=== PATIENT | female | born 1990 | race Caucasian/White ===

== ENCOUNTER 2016-10-02 18:06 | Emergency (ER) | payer MEDICAID ==
[~2016-10-02] VITALS: Ht 172.7 cm; Wt 130.0 kg
[~2016-10-02 18:06] MED LIST: IBUP800T23 PO; ROBA500T PO
[2016-10-02 18:09] VITALS: BP 154/85; TEMP 98.3; O2SAT 99
--- NOTE | 2016-10-02 18:29 | PD ---
HPI . possible bronchitis Chief Complaint: Cold / Flu Symptoms Time Seen by Provider: 18:23 Travel History International Travel<30 days: No Contact w/Intl Traveler<30days: No Traveled to known affect area: No History of Present Illness HPI 26-year-old female here with complaints of recurrent bronchitis. Patient says about this time of year she gets bouts of bronchitis and increased coughing, where it makes it difficult for her to do anything. She admits to coughing to the point where she is about to vomit. Today she is complaining of increased cough with some mild white phlegm production. She denies any fever or chills. She has no cold symptoms. She denies any nausea, vomiting, chest pain, shortness of breath or abdominal pain. PFSH Past Medical History Immunizations Current: Yes ?: Not LMP: 09/17/16 : 2 Para: 1 Past Surgical History Other Surgery: Yes (VOCAL CORD POLYPS) Social History Alcohol Use: No Tobacco Use: No Substance Use: No Allergies-Medications (Allergen,Severity, Reaction): Coded Allergies: No Known Allergies (Verified , 10/02/16) Reported Meds & Prescriptions Reported Meds & Active Scripts Active Proair Hfa 8.5 GM Inh (Albuterol Sulfate) 90 Mcg/Act Aer 2 Puff INH Q6H PRN 108 mcg/actuation Tessalon Perles (Benzonatate) 100 Mg Cap 100 Mg PO TID PRN Prednisone 50 Mg Tab 50 Mg PO DAILY Robaxin (Methocarbamol) 500 Mg Tab 500 Mg PO QID PRN Ibuprofen 800 Mg Tab 800 Mg PO Q6HR PRN Review of Systems General / Constitutional: No: Fever Eyes: No: Visual changes HENT: No: Headaches Cardiovascular: No: Chest Pain or Discomfort Respiratory: Positive: Cough, No: Shortness of Breath Gastrointestinal: Positive: Vomiting (when coughing too much), No: Abdominal Pain Genitourinary: No: Dysuria Musculoskeletal: No: Pain Skin: No Rash Neurologic: No: Weakness Psychiatric: No: Depression Endocrine: No: Polydipsia Hematologic/Lymphatic: No: Easy Bruising Physical Exam Narrative GENERAL: AAO x 3, no acute distress, Well-nourished, well-developed patient. SKIN: Warm and dry. No visible rashes or bruising. HEAD: Normocephalic and atraumatic. EYES: No scleral icterus. No injection or drainage. Mild posterior pharynx erythema, no exudates or tonsillar edema. ENT: No nasal drainage noted. Mucous membranes pink. Airway patent. NECK: Supple, trachea midline. No JVD. No lymphadenopathy. CARDIOVASCULAR: Regular rate and rhythm without murmurs, gallops, or rubs. RESPIRATORY: Breath sounds equal bilaterally, but slightly diminished. No accessory muscle use. No rhonchi or rales. Dry cough prominent during examination. GASTROINTESTINAL: Abdomen soft, non-tender, nondistended. EXTREMITIES: No cyanosis or edema. BACK: Nontender without obvious deformity. No CVA tenderness. PSYCH: AAO x 3, normal affect. Data Data Last Documented VS Vital Signs Date Time Temp Pulse Resp B/P Pulse Ox O2 Delivery O2 Flow Rate FiO2 10/02/16 18:09 98.3 90 24 154/85 99 Room Air [facility] Medical Decision Making Medical Screen Exam Complete: Yes Emergency Medical Condition: Yes Differential Diagnosis Bronchitis, sinusitis, less likely pneumonia Narrative Course 26-year-old female here with complaints of recurrent bronchitis. Patient says about this time of year she gets bouts of bronchitis and increased coughing, where it makes it difficult for her to do anything. She admits to coughing to the point where she is about to vomit. Today she is complaining of increased cough with some mild white phlegm production. She denies any fever or chills. She has no cold symptoms. She denies any nausea, vomiting, chest pain, shortness of breath or abdominal pain. Patient seen and examined. Her examination is unremarkable except for a dry cough. She has slightly diminished breath sounds, but no Rales, rhonchi or wheezing. Recommend steroid burst, Tessalon Perles and pro-air inhaler. She's been advised to follow-up with primary care provider Patient verbalized understanding of instructions, questions were answered, and thanked me for their care. I advised them if their condition worsens, please return to the nearest emergency room for further care. Diagnosis Primary Impression: Acute bronchitis Qualified Code: J20.9 - Acute bronchitis, unspecified organism Patient Instructions: Acute Bronchitis (ED), General Instructions Departure Forms: Tests/Procedures, Work Release Enter return to work date: Oct 03, 2016 Additional Instructions: As we discussed the cough can last 6-8 weeks. Take medications as prescribed. If you are a smoker, try to quit. Follow up with your primary care provider. If you develop sudden onset or worsening of shortness or breath, please go to the nearest emergency room. Med/Other Pt SpecificInfo: Prescription(s) given Scripts Albuterol 8.5 GM Inh (Proair Hfa 8.5 GM Inh)90 Mcg/Act Aer2 Puff INH Q6H PRN ( SHORTNESS OF BREATH) #1 INHALER Ref 0 108 mcg/actuation Prov:Lizz López MD 10/02/16 Benzonatate (Tessalon Perles)100 Mg [id number] Mg PO TID PRN (COUGH) #30 CAP Ref 0 Prov:Lizz López MD 10/02/16 Prednisone 50 Mg Tab50 Mg PO DAILY #5 TAB Prov:Lizz López MD 10/02/16 Disposition: 01 DISCHARGE HOME Condition: Stable Bethany Lopez Oct 02, 2016 18:29
[2016-10-02] MEDS ORDERED: BENZ100 PO (18:30)
[2016-10-02] MEDS ORDERED: ALBUAER3 INH (18:30)
[2016-10-02] MEDS ORDERED: PRED50 PO (18:30)
== END 2016-10-02 19:01 | disposition home or self-care (01) ==
LOC: NEPB 18:06
DX: J20.9 Acute bronchitis, unspecified (principal)
CPT/HCPCS: 99283

== ENCOUNTER 2017-03-12 14:42 | Emergency (ER) | payer MEDICAID ==
[~2017-03-12] VITALS: Ht 154.9 cm; Wt 127.0 kg
[~2017-03-12 14:42] MED LIST changes: +ALBUAER3 INH; +BENZ100 PO; +PRED50 PO
[2017-03-12 14:44] VITALS: BP 176/83; PULSE 84; RESP 15; TEMP 98.2; O2SAT 99
--- NOTE | 2017-03-12 16:03 | PD ---
HPI . dental pain Chief Complaint: Oral / Dental Pain or Problem Time Seen by Provider: 15:55 Travel History International Travel<30 days: No Contact w/Intl Traveler<30days: No Traveled to known affect area: No History of Present Illness HPI 27 yr old female here with c/o dental pain for quite some time. She tells me she has an appointment with the oral surgeon but it isn't until [address] She is here requesting pain meds. She denies any fever or chills. No facial swelling. History Social History Alcohol Use: No Tobacco Use: No Allergies-Medications (Allergen,Severity, Reaction): Coded Allergies: No Known Allergies (Verified , 10/02/16) Reported Meds & Prescriptions Reported Meds & Active Scripts Active Proair Hfa 8.5 GM Inh (Albuterol Sulfate) 90 Mcg/Act Aer 2 Puff INH Q6H PRN 108 mcg/actuation Tessalon Perles (Benzonatate) 100 Mg Cap 100 Mg PO TID PRN Prednisone 50 Mg Tab 50 Mg PO DAILY Robaxin (Methocarbamol) 500 Mg Tab 500 Mg PO QID PRN Ibuprofen 800 Mg Tab 800 Mg PO Q6HR PRN Review of Systems General / Constitutional: No: Fever Eyes: No: Visual changes HENT: Positive: Dental Difficulties, No: Headaches Cardiovascular: No: Chest Pain or Discomfort Respiratory: No: Shortness of Breath Gastrointestinal: No: Abdominal Pain Genitourinary: No: Dysuria Musculoskeletal: No: Pain Skin: No Rash Neurologic: No: Weakness Psychiatric: No: Depression Endocrine: No: Polydipsia Hematologic/Lymphatic: No: Easy Bruising Physical Exam Narrative GENERAL: AAO x 3, no acute distress, Well-nourished, well-developed patient. SKIN: Warm and dry. No visible rashes or bruising. HEAD: Normocephalic and atraumatic. EYES: No scleral icterus. No injection or drainage. EOM intact, PERRLA ENT: No nasal drainage noted. Mucous membranes pink. Airway patent. #32 slightly cracked, no fluid collection or drainage, no inflammation, no facial edema, NECK: Supple, trachea midline. No JVD. No lymphadenopathy CARDIOVASCULAR: Regular rate and rhythm without murmurs, gallops, or rubs. RESPIRATORY: Breath sounds equal bilaterally. No accessory muscle use. No rhonchi or rales. GASTROINTESTINAL: Visual inspection normal EXTREMITIES: No cyanosis or edema. BACK: No obvious deformity. NEURO: CN II-12 intact, PSYCH: AAO x 3, normal affect. Data Data Last Documented VS Vital Signs Date Time Temp Pulse Resp B/P (MAP) Pulse Ox O2 Delivery O2 Flow Rate FiO2 03/12/17 14:44 98.2 84 15 176/83 (114) 99 MDM Medical Screen Exam Complete: Yes Emergency Medical Condition: No Differential Diagnosis Dentalgia, cracked tooth, less likely oral abscess Narrative Course A medical screening exam was performed: At the time of evaluation the presenting medical condition was determined not to be of an emergent nature. The patient was given the option of receiving additional care, but declined. Patient was given options for additional community resources from which to obtain care. The Patient Has Been advised to seek medical attention for their presenting complaint. The patient has been advised to return to the ER at any time if an emergent condition develops. Advised patient to try [id number] Tylenol or Ibuprofen. Recommend trying to find another oral surgeon who can see her earlier. Primary Impression: Encounter for medical screening examination Condition: Stable Bethany Lopez Mar 12, 2017 16:03
== END 2017-03-12 16:09 | disposition left against medical advice (07) ==
LOC: NEPD 14:42
DX: K08.89 Other specified disorders of teeth and supporting structures (principal)
CPT/HCPCS: 99281

== ENCOUNTER 2017-07-07 12:04 | Emergency (ER) | payer MEDICAID ==
[~2017-07-07] VITALS: Ht 157.5 cm; Wt 125.0 kg
[~2017-07-07 12:04] MED LIST changes: +IBUP1TAB7 PO; -IBUP800T23 PO
[2017-07-07 12:06] VITALS: BP 143/87; PULSE 90; RESP 14; TEMP 97.5; O2SAT 97
[2017-07-07] MEDS ORDERED: PRED-503 PO (13:59)
--- NOTE | 2017-07-07 13:59 | PD ---
HPI Chief Complaint: ENT Complaint Time Seen by Provider: 13:30 Travel History International Travel<30 days: No Contact w/Intl Traveler<30days: No Traveled to known affect area: No History of Present Illness HPI The patient is a 27-year-old female who presents to the emergency department for 2 days of sore throat, congestion, frontal headache, dry nonproductive cough, loss of voice. The patient states she has sick family members at home with strep pharyngitis and was concerned that she may have strep throat. The patient denies any fever, chills, or sweats. She does note a dry nonproductive cough without any shortness of breath or chest pain. She denies any associated nausea, vomiting, diarrhea, abdominal pain, myalgias, or arthralgias. She does complain of a frontal facial headache over the frontal sinuses and mild nasal congestion. She also complains of postnasal drip. PFSH Past Medical History Medical History: Denies Significant Hx Immunizations Current: Yes ?: Not : 2 Para: 1 Past Surgical History Other Surgery: Yes (VOCAL CORD POLYPS) Social History Alcohol Use: No Tobacco Use: No Substance Use: No Allergies-Medications (Allergen,Severity, Reaction): Coded Allergies: No Known Allergies (Verified Adverse Reaction, Unknown, 07/07/17) Reported Meds & Prescriptions Reported Meds & Active Scripts Active Proair Hfa 8.5 GM Inh (Albuterol Sulfate) 90 Mcg/Act Aer 2 Puff INH Q6H PRN 108 mcg/actuation Tessalon Perles (Benzonatate) 100 Mg Cap 100 Mg PO TID PRN Prednisone 50 Mg Tab 50 Mg PO DAILY Robaxin (Methocarbamol) 500 Mg Tab 500 Mg PO QID PRN Ibuprofen 800 Mg Tab 800 Mg PO Q6HR PRN Review of Systems Except as stated in HPI: all other systems reviewed are Neg General / Constitutional: No: Fever, Chills HENT: Positive: Headaches, Sore Throat, Congestion Respiratory: Positive: Cough, No: Shortness of Breath Gastrointestinal: No: Nausea, Vomiting, Diarrhea, Abdominal Pain Musculoskeletal: No: Myalgias, Arthralgias Physical Exam Narrative GENERAL: Awake, alert, pleasant 27-year-old female who appears her stated age and is in no acute respiratory distress. SKIN: Focused skin assessment warm/dry. HEAD: Atraumatic. Normocephalic. EYES: Pupils equal and round. No scleral icterus. No injection or drainage. ENT: No nasal bleeding or discharge. TMs are translucent and EACs are clear. Oropharynx reveals cobblestoning but no erythema or exudate. Patient has mild loss of voice. NECK: Trachea midline. No JVD. CARDIOVASCULAR: Regular rate and rhythm. No murmur appreciated. RESPIRATORY: No accessory muscle use. Clear to auscultation. Breath sounds equal bilaterally. MUSCULOSKELETAL: No obvious deformities. No clubbing. No cyanosis. No edema. NEUROLOGICAL: Awake and alert. No obvious cranial nerve deficits. Motor grossly within normal limits. PSYCHIATRIC: Appropriate mood and affect; insight and judgment normal. Data Data Last Documented VS Vital Signs Date Time Temp Pulse Resp B/P (MAP) Pulse Ox O2 Delivery O2 Flow Rate FiO2 07/07/17 12:06 97.5 90 14 143/87 (105) 97 Orders Orders Group A Rapid Strep Screen (07/07/17 12:09) Strep Culture (Group A) (07/07/17 12:14) Prednisone (Deltasone) (07/07/17 14:00) MDM Medical Decision Making Medical Screen Exam Complete: Yes Emergency Medical Condition: Yes Medical Record Reviewed: Yes Differential Diagnosis Differential diagnosis includes laryngitis, pharyngitis, strep pharyngitis, viral pharyngitis, influenza, URI, sinusitis. Narrative Course The patient's symptoms are consistent with viral URI with secondary laryngitis. Therefore, the patient we placed on prednisone, administer the first dose in the emergency department and will be discharged home with prednisone once a day for the next 4 days. She will also be provided a work excuse for 2 days. She is advised to alternate Tylenol and Motrin as needed for pain and fever and a follow-up with her primary physician. Return if symptoms worsen or progress. Diagnosis Primary Impression: Viral syndrome Additional Impression: Laryngitis Patient Instructions: General Instructions Additional Instructions: Medications as directed. Alternate Tylenol and Motrin for pain and fever. Work excuse for 2 days. Follow-up with a primary physician. Med/Other Pt SpecificInfo: Prescription(s) given Scripts Prednisone (Deltasone) 20 Mg Tab 40 MG PO DAILY for 4 Days, #8 TAB 0 Refills Prov: Vu Hernandez MD 07/07/17 Disposition: 01 DISCHARGE HOME Condition: Stable Vu Hernandez MD Jul 07, 2017 13:59
[2017-07-07] MEDS ORDERED: predniSONE 20 MG TAB PO ONE (14:00)
== END 2017-07-07 14:30 | disposition home or self-care (01) ==
LOC: NEPD 12:04
DX: B34.9 Viral infection, unspecified (principal); Z79.899 Other long term (current) drug therapy
CPT/HCPCS: 87081; 87880; 99283; J7512

== ENCOUNTER 2017-10-13 15:55 | Observation (INO) | payer MEDICAID ==
[~2017-10-13] VITALS: Ht 154.9 cm; Wt 122.5 kg
[~2017-10-13 15:55] MED LIST changes: +PRED-503 PO
[2017-10-13 16:05] VITALS: BP 157/81; PULSE 87; RESP 19; TEMP 99.5; O2SAT 100
--- NOTE | 2017-10-13 20:44 | PD ---
HPI Chief Complaint: Respiratory Distress Time Seen by Provider: 20:33 Travel History International Travel<30 days: No Contact w/Intl Traveler<30days: No Traveled to known affect area: No History of Present Illness HPI 27-year-old female presents to the emergency department for evaluation of difficulty swallowing, hoarseness, shortness of breath especially with lying down that worsened this morning. 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 She had surgeries as a child, has not had any surgery since. She has not been following up with ENT. She saw her primary care physician today who referred her to the emergency department. Patient states that she has been having worsening symptoms for a month, but the symptoms worsened today. She denies any pain. Patient denies any chance of . She denies any chest pain. No abdominal pain. No nausea, vomiting , diarrhea. No exacerbating or alleviating factors. Moderate severity. PFSH Past Medical History Immunizations Current: Yes ?: Not : 2 Para: 1 Past Surgical History Other Surgery: Yes (VOCAL CORD POLYPS) Social History Alcohol Use: No Tobacco Use: No Substance Use: No Allergies-Medications (Allergen,Severity, Reaction): Coded Allergies: No Known Allergies (Verified Adverse Reaction, Unknown, 10/13/17) Reported Meds & Prescriptions Reported Meds & Active Scripts Active Deltasone (Prednisone) 20 Mg Tab 40 Mg PO DAILY 4 Days Proair Hfa 8.5 GM Inh (Albuterol Sulfate) 90 Mcg/Act Aer 2 Puff INH Q6H PRN 108 mcg/actuation Tessalon Perles (Benzonatate) 100 Mg Cap 100 Mg PO TID PRN Prednisone 50 Mg Tab 50 Mg PO DAILY Robaxin (Methocarbamol) 500 Mg Tab 500 Mg PO QID PRN Ibuprofen 800 Mg Tab 800 Mg PO Q6HR PRN Review of Systems Except as stated in HPI: all other systems reviewed are Neg Physical Exam Narrative GENERAL: Well-nourished, well-developed female patient, afebrile. Patient's voice is hoarse. SKIN: Focused skin assessment warm/dry. HEAD: Normocephalic. Atraumatic. ENT: Mucosa pink and moist. No erythema or exudates. No uvular edema. No uvular , palatal, or tonsillar deviation. Airway patent. Nasal turbinates appear normal without nasal blood, purulent drainage or septal hematoma. Bilateral tympanic membranes are clear without erythema or perforation. EYES: No scleral icterus. No injection or drainage. NECK: Supple, trachea midline. No JVD or lymphadenopathy. CARDIOVASCULAR: Regular rate and rhythm without murmurs, gallops, or rubs. RESPIRATORY: Breath sounds equal bilaterally. No accessory muscle use. Lungs sounds are clear to auscultation. GASTROINTESTINAL: Abdomen soft, non-tender, nondistended. MUSCULOSKELETAL: No cyanosis, or edema. BACK: Nontender without obvious deformity. No CVA tenderness. Data Data Last Documented VS Vital Signs Date Time Temp Pulse Resp B/P (MAP) Pulse Ox O2 Delivery O2 Flow Rate FiO2 10/13/17 20:45 98 Room Air 10/13/17 16:05 99.5 87 19 157/81 (106) Orders Orders Complete Blood Count With Diff (10/13/17 20:37) Basic Metabolic Panel (Bmp) (10/13/17 20:37) Prothrombin Time / Inr (Pt) (10/13/17 20:37) Act Partial Throm Time (Ptt) (10/13/17 20:37) Iv Access Insert/Monitor (10/13/17 20:37) Ed Urine Pregnancytest Poc (10/13/17 20:37) Ct Soft Tiss Neck W Iv Cont (10/13/17 ) Ecg Monitoring (10/13/17 20:37) Oximetry (10/13/17 20:37) Oxygen Administration (10/13/17 20:37) Dexamethasone Inj (Decadron Inj) (10/13/17 20:45) Labs Laboratory Tests Test 10/13/17 21:05 White Blood Count 8.5 TH/MM3 Red Blood Count 4.50 MIL/MM3 Hemoglobin 14.1 GM/DL Hematocrit 38.8 % Mean Corpuscular Volume 86.3 FL Mean Corpuscular Hemoglobin 31.4 PG Mean Corpuscular Hemoglobin Concent 36.4 % Red Cell Distribution Width 13.0 % Platelet Count 285 TH/MM3 Mean Platelet Volume 8.6 FL Neutrophils (%) (Auto) 61.6 % Lymphocytes (%) (Auto) 27.5 % Monocytes (%) (Auto) 7.8 % Eosinophils (%) (Auto) 2.7 % Basophils (%) (Auto) 0.4 % Neutrophils # (Auto) 5.2 TH/MM3 Lymphocytes # (Auto) 2.3 TH/MM3 Monocytes # (Auto) 0.7 TH/MM3 Eosinophils # (Auto) 0.2 TH/MM3 Basophils # (Auto) 0.0 TH/MM3 CBC Comment AUTO DIFF Differential Comment AUTO DIFF CONFIRMED Platelet Estimate NORMAL Platelet Morphology Comment NORMAL Prothrombin Time 10.1 SEC Prothromb Time International Ratio 1.0 RATIO Activated Partial Thromboplast Time 26.1 SEC Blood Urea Nitrogen 8 MG/DL Creatinine 0.58 MG/DL Random Glucose 87 MG/DL Calcium Level 9.2 MG/DL Sodium Level 139 MEQ/L Potassium Level 4.1 MEQ/L Chloride Level 102 MEQ/L Carbon Dioxide Level 30.8 MEQ/L Anion Gap 6 MEQ/L Estimat Glomerular Filtration Rate 124 ML/MIN [facility] Medical Decision Making Medical Screen Exam Complete: Yes Emergency Medical Condition: Yes Medical Record Reviewed: Yes Differential Diagnosis Worsening vocal cord polyps versus retropharyngeal abscess versus epiglottitis Narrative Course 27-year-old female presents to the emergency department for evaluation of difficulty swallowing, hoarse voice, shortness of breath, worsened today. She' s history of vocal cord polyps and believes they are worsening. I discussed this established. CBC, BMP, PTT, PT/INR, UPT are ordered and pending. Chest x- ray and CT soft tissue neck with IV contrast is ordered and pending. Patient is given dexamethasone 8 mg IV. Patient declined chest x-ray. She also declined dexamethasone stating that it makes the polyps grow. Orders are canceled. CBC shows no acute abnormality. BMP is unremarkable. Coags are unremarkable. UPT is negative. CT soft tissue neck is pending. Dr. Guthrie will resume care and disposition of patient. Juanita Kay Oct 13, 2017 20:44
[2017-10-13] MEDS ORDERED: DEXAMETHASONE SOD PHOS 4 MG/ML VIAL IV PUSH ONE (20:45)
[2017-10-13 21:32] LABS: AUTOMATED NEUTROPHIL # 5.2 TH/MM3 (1.8-7.7); BASOPHIL % 0.4 % (0.0-2.0); EOSINOPHIL # 0.2 TH/MM3 (0-0.4); EOSINOPHIL % 2.7 % (0.0-4.0); HEMATOCRIT 38.8 % (35.0-46.0); HEMOGLOBIN 14.1 GM/DL (11.6-15.3); LYMPH % 27.5 % (9.0-44.0); LYMPHOCYTE # 2.3 TH/MM3 (1.0-4.8); MEAN CELL VOLUME 86.3 FL (80.0-100.0); MEAN CORPUSCULAR HEMOGLOBIN 31.4 PG (27.0-34.0); MEAN PLATELET VOLUME 8.6 FL (7.0-11.0); MONO % 7.8 % (0.0-8.0); MONOCYTE # 0.7 TH/MM3 (0-0.9); NEUT % 61.6 % (16.0-70.0); PLATELET COUNT 285 TH/MM3 (150-450); WHITE BLOOD COUNT 8.5 TH/MM3 (4.0-11.0)
[2017-10-13 21:36] LABS: MEAN CORPUSCULAR HGB CONC 36.4 % (32.0-36.0)
[2017-10-13 21:45] LABS: PROTHROMBIN TIME - PATIENT 10.1 SEC (9.8-11.6)
[2017-10-13 21:58] LABS: BICARBONATE 30.8 MEQ/L (21.0-32.0); CALCIUM 9.2 MG/DL (8.5-10.1); CREATININE 0.58 MG/DL (0.50-1.00)
[2017-10-13] MEDS ORDERED: IOHEXOL 350 MG/ML 10 ML VIAL (for RAD DIAG) IVCONTRAST ONE (23:51)
--- NOTE | 2017-10-14 00:21 | RADRPT ---
EXAM DATE/TIME: 10/13/2017 23:37 [facility] COMPARISON: No previous studies available for comparison. INDICATIONS : Patient is hoarse and complains of dyspnea and difficulty swallowing. 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 ENCOUNTER: Initial ACUITY: 1 day PAIN SCALE: 5/10 LOCATION: neck TECHNIQUE: Volumetric scanning of the neck was performed. Using automated exposure control and adjustment of th e mA and/or kV according to patient size, radiation dose was kept as low as reasonably achievable to obtain optimal diagnostic quality images. DICOM format image data is available electronically for r eview and comparison. FINDINGS: NASOPHARYNX: The nasopharyngeal airway has a normal configuration. No mucosal thickening or mass is seen. OROPHARYNX: The intrinsic muscles of the tongue are symmetric. The tonsillar pillars are intact. The prevertebr al soft tissues are not thickened. LARYNX: Portions the epiglottis are prominent and nodular in appearance. Below this level there is a soft tis jane masslike structure in the region of the larynx measuring up to approximately 1.5 cm. PARAPHARYNGEAL: The parapharyngeal space is intact. SALIVARY GLANDS: The parotid and submandibular glands are intact. LYMPH NODES: No enlarged or necrotic-appearing nodes. THYROID: Homogeneous enhancement without evidence of nodule. BONES: Unremarkable. CONCLUSION: 1. Portions the epiglottis are prominent and nodular in appearance. This may represent polyps. 2. There is a 1.5 cm ill-defined masslike structure below this point in the larynx. This may represen t a large polyp. 3. No evidence of adenopathy. 4. Direct visualization is recommended. Eulalio Long MD on October 14, 2017 at 0:10 Board Certified Radiologist. This report was verified electronically.
[2017-10-14 05:39] VITALS: BP 135/69; PULSE 98; RESP 16; O2SAT 99
[2017-10-14] MEDS ORDERED: ONDANSETRON HCL 4 MG/2 ML VIAL IVP PRN (08:45)
[2017-10-14] MEDS ORDERED: SODIUM CHLORIDE 0.9% FLUSH 10 ML FLUSH IV FLUSH PRN (08:45)
[2017-10-14] MEDS ORDERED: MAGNESIUM HYDROXIDE SUSP 30 ML CUP PO PRN (08:45)
[2017-10-14] MEDS ORDERED: NALOXONE HCL 0.4 MG/ML AMP IV PUSH PRN (08:45)
[2017-10-14] MEDS: SODIUM CHLORIDE 0.9% FLUSH 10 ML FLUSH IV FLUSH SCH ×2 (09:00→21:43)
[2017-10-14 09:07] VITALS: BP 131/74; PULSE 108; RESP 22; O2SAT 99
--- NOTE | 2017-10-14 11:37 | HHI.HP ---
[facility] Unknown Admission Diagnosis large airway mass ? vocal polyp? Diagnoses: Travel History International Travel<30 Days: No Contact w/Intl Traveler <30 Da: No Traveled to Known Affected Are: No History of Present Illness Mrs. Hebert is a 27-year-old female. She came into the emergency department with complaints of respiratory distress. She has a history of vocal cord polyps since childhood. She says in the past 2 days she's had an acute change in her vocal cord status. She reports difficulty talking, difficulty swallowing, and mild to moderate stridor with breathing. Pulse ox evaluation in the ER shows a relatively low oxygenation compared to expected baseline at her age. She has no other health problems or comorbidities. No asthma. She denies any upper respiratory tract infection preceding this. No complaints of pharyngitis. No prior history reported of vocal cord hematoma. Steroids have been provided in the ER and ENT has been consulted. No other complaints today. Review of Systems Constitutional: DENIES: Fatigue, Fever Eyes: DENIES: Blurred vision, Diplopia, Eye inflammation, Eye pain Respiratory: COMPLAINS OF: Wheezing, Shortness of breath Cardiovascular: COMPLAINS OF: Dyspnea on Exertion, DENIES: Chest pain, Palpitations, Syncope Gastrointestinal: DENIES: Abdominal pain, Black stools, Bloody stools Musculoskeletal: DENIES: Joint pain, Muscle aches, Stiffness Integumentary: DENIES: Abnormal pigmentation, Pruritus, Rash Hematologic/lymphatic: DENIES: Bruising, Lymphadenopathy Immunologic/allergic: DENIES: Eczema, Urticaria Neurologic: DENIES: Abnormal gait, Headache, Paresthesias Psychiatric: DENIES: Anxiety, Confusion, Hallucinations Past Family Social History Past Medical History Vocal Cord polyps Past Surgical History Procedures on vocal cords Reported Medications None Allergies: Coded Allergies: No Known Allergies (Verified Adverse Reaction, Unknown, 10/13/17) Active Ordered Medications Administered Medications Medications (Trade) Dose Ordered Sig/Adrienne Route PRN Reason Start Time Stop Time Status Last Admin Dose Admin Sodium Chloride (NS Flush) 2 ml BID IV FLUSH 10/14/17 09:00 10/14/17 09:00 Family History None Social History No smoking, no alcohol abuse, no illicit drug abuse Physical Exam Vital Signs Vital Signs Date Time Temp Pulse Resp B/P (MAP) Pulse Ox O2 Delivery O2 Flow Rate FiO2 10/14/17 09:07 108 22 131/74 (93) 99 Room Air 10/14/17 05:39 98 16 135/69 (91) 99 Room Air 10/13/17 20:45 98 Room Air 10/13/17 16:05 99.5 87 19 157/81 (106) 100 Physical Exam GENERAL: NAD, A&Ox3, wheezing (throat) with breathing HEAD: Normocephalic. NECK: Supple, trachea midline. No lymphadenopathy. EYES: No scleral icterus. No injection or drainage. CARDIOVASCULAR: Regular rate and rhythm without murmurs, gallops, or rubs. RESPIRATORY: Breath sounds equal bilaterally. No accessory muscle use. No wheezing in lungs. GASTROINTESTINAL: Abdomen soft, non-tender, nondistended. MUSCULOSKELETAL: No cyanosis, or edema. SKIN: Warm and dry. NEURO: No focal neurological deficitis. Laboratory Laboratory Tests Test 10/13/17 21:05 White Blood Count 8.5 Red Blood Count 4.50 Hemoglobin 14.1 Hematocrit 38.8 Mean Corpuscular Volume 86.3 Mean Corpuscular Hemoglobin 31.4 Mean Corpuscular Hemoglobin Concent 36.4 Red Cell Distribution Width 13.0 Platelet Count 285 Mean Platelet Volume 8.6 Neutrophils (%) (Auto) 61.6 Lymphocytes (%) (Auto) 27.5 Monocytes (%) (Auto) 7.8 Eosinophils (%) (Auto) 2.7 Basophils (%) (Auto) 0.4 Neutrophils # (Auto) 5.2 Lymphocytes # (Auto) 2.3 Monocytes # (Auto) 0.7 Eosinophils # (Auto) 0.2 Basophils # (Auto) 0.0 CBC Comment AUTO DIFF Differential Comment AUTO DIFF CONFIRMED Platelet Estimate NORMAL Platelet Morphology Comment NORMAL Prothrombin Time 10.1 Prothromb Time International Ratio 1.0 Activated Partial Thromboplast Time 26.1 Blood Urea Nitrogen 8 Creatinine 0.58 Random Glucose 87 Calcium Level 9.2 Sodium Level 139 Potassium Level 4.1 Chloride Level 102 Carbon Dioxide Level 30.8 Anion Gap 6 Estimat Glomerular Filtration Rate 124 Result Diagram: 10/13/17210410/13/172104 Caprini VTE Risk Assessment Caprini VTE Risk Assessment: No/Low Risk (score <= 1) Caprini Risk Assessment Model Point Value = 1 Point Value = 2 Point Value = 3 Point Value = 5 Age 41-60 Minor surgery BMI > 25 kg/m2 Swollen legs Varicose veins or History of unexplained or recurrent spontaneous Oral contraceptives or hormone replacement Sepsis (< 1 month) Serious lung disease, including pneumonia (< 1 month) Abnormal pulmonary function Acute myocardial infarction Congestive heart failure (< 1 month) History of inflammatory bowel disease Medical patient at bed rest Age 61-74 Arthroscopic surgery Major open surgery (> 45 min) Laparoscopic surgery (> 45 min) Malignancy Confined to bed (> 72 hours) Immobilizing plaster cast Central venous access Age >= 75 History of VTE Family history of VTE Factor V Leiden Prothrombin [id number] Lupus anticoagulant Anticardiolipin antibodies Elevated serum homocysteine Heparin-induced thrombocytopenia Other congenital or acquired thrombophilia Stroke (< 1 month) Elective arthroplasty Hip, pelvis, or leg fracture Acute spinal cord injury (< 1 month) Prophylaxis Regimen Total Risk Factor Score Risk Level Prophylaxis Regimen 0-1 Low Early ambulation 2 Moderate Order ONE of the following: *Sequential Compression Device (SCD) *Heparin 5000 units SQ BID 3-4 Higher Order ONE of the following medications: *Heparin 5000 units SQ TID *Enoxaparin/Lovenox 40 mg SQ daily (WT < 150 kg, CrCl > 30 mL/min) *Enoxaparin/Lovenox 30 mg SQ daily (WT < 150 kg, CrCl > 10-29 mL/min) *Enoxaparin/Lovenox 30 mg SQ BID (WT < 150 kg, CrCl > 30 mL/min) AND/OR *Sequential Compression Device (SCD) 5 or more Highest Order ONE of the following medications: *Heparin 5000 units SQ TID (Preferred with Epidurals) *Enoxaparin/Lovenox 40 mg SQ daily (WT < 150 kg, CrCl > 30 mL/min) *Enoxaparin/Lovenox 30 mg SQ daily (WT < 150 kg, CrCl > 10-29 mL/min) *Enoxaparin/Lovenox 30 mg SQ BID (WT < 150 kg, CrCl > 30 mL/min) AND *Sequential Compression Device (SCD) Assessment and Plan Problem List: (1) Respiratory distress ICD Code: R06.03 - Acute respiratory distress (2) Stridor ICD Code: R06.1 - Stridor (3) Vocal cord polyps ICD Code: J38.1 - Polyp of vocal cord Status: Acute Assessment and Plan 27-year-old female admitted related to respiratory distress, possibly related to vocal cord polyps. Respiratory distress Acute stridor History of vocal cord polyps Acute change could reflect new inflammation or bleeding at the vocal cords Steroids provided in the ER ENT consulted Follow on pulse ox Sitter intubation if clinical condition worsens Steroids planned (patient declines for now till she discusses this with ENT). DVT prophylaxis Avoid anticoagulation Asael Samson MD Oct 14, 2017 11:37
[2017-10-14 13:39] VITALS: BP 135/69; PULSE 98; RESP 18; O2SAT 95
[2017-10-14 17:50] VITALS: BP 113/76; PULSE 88; RESP 16; TEMP 98.5; O2SAT 99
[2017-10-14 20:33] VITALS: BP 130/82; PULSE 88; RESP 18; TEMP 98.3; O2SAT 98
[2017-10-14 23:46] VITALS: BP 116/62; PULSE 94; RESP 18; TEMP 98.3; O2SAT 98
[2017-10-15 03:51] VITALS: BP 126/68; PULSE 90; RESP 18; TEMP 98.5; O2SAT 97
[2017-10-15 09:10] VITALS: BP 140/62; PULSE 68; RESP 18; TEMP 96.8; O2SAT 98
[2017-10-15] MEDS: SODIUM CHLORIDE 0.9% FLUSH 10 ML FLUSH IV FLUSH SCH (09:24)
--- NOTE | 2017-10-15 11:27 | HHI.PR ---
Subjective Remarks Pt states she feels ok, no worsening SOB, still has hoarseness but unchanged. no nausea or vomiting Objective Vitals Vital Signs Date Time Temp Pulse Resp B/P (MAP) Pulse Ox O2 Delivery O2 Flow Rate FiO2 10/15/17 09:10 96.8 68 18 140/62 (88) 98 10/15/17 03:51 98.5 90 18 126/68 (87) 97 10/14/17 23:46 98.3 94 18 116/62 (80) 98 10/14/17 20:33 98.3 88 18 130/82 (98) 98 10/14/17 17:50 98.5 88 16 113/76 (88) 99 10/14/17 13:39 98 18 135/69 (91) 95 Room Air Result Diagram: 10/13/17210410/13/172104 Imaging Last Impressions Neck CT 10/13/17 0000 Signed Impressions: Service Date/Time: Friday, October 13, 2017 23:37 - CONCLUSION: 1. Portions the epiglottis are prominent and nodular in appearance. This may represent polyps. 2. There is a 1.5 cm ill-defined masslike structure below this point in the larynx. This may represent a large polyp. 3. No evidence of adenopathy. 4. Direct visualization is recommended. Eulalio Long MD Objective Remarks GENERAL: laying in bed, appears comfortable CARDIOVASCULAR: Regular rate and rhythm without murmurs RESPIRATORY: Breath sounds equal bilaterally. No accessory muscle use. GASTROINTESTINAL: Abdomen soft, non-tender, nondistended. MUSCULOSKELETAL: No edema. A/P Problem List: (1) Respiratory distress ICD Code: R06.03 - Acute respiratory distress (2) Stridor ICD Code: R06.1 - Stridor (3) Vocal cord polyps ICD Code: J38.1 - Polyp of vocal cord Status: Acute Assessment and Plan Respiratory distress Acute stridor- resolved History of vocal cord polyps Acute change could reflect new inflammation or bleeding at the vocal cords Steroids provided in the ER but pt refused as per pt steroids make the polyps bigger. ENT consulted, official consult report still pending. Discussed w pt, and she was told that she would need to f/u as a outpatient w an ENT in . I have placed a call to Dr. Davis as pt doesn't remember which physician she needs to make appt w at . She tells me that Dr. Davis told her that her condition didn't warrant a hospital to hospital transfer. I did explain to her that she will need to go through her PCP to speed up referral. Discharge Planning Waiting on Dr. Davis to call me back Sandy Bryan MD Oct 15, 2017 11:27
== END 2017-10-15 15:56 | disposition home or self-care (01) ==
LOC: NEPE 15:55 → NEDA 10-14 07:43 → NEPGCP 10-14 17:50
PROVIDERS: ADMIT Hospitalist; ATTEND Hospitalist
DX: R06.03 Acute respiratory distress (principal); R06.1 Stridor; J38.1 Polyp of vocal cord and larynx; R13.10 Dysphagia, unspecified
CPT/HCPCS: 70491; 80048; 84703; 85025; 85610; 85730; 99285; G0378; Q9967